=== PATIENT | male | born 1995 | race Caucasian/White ===

== ENCOUNTER 2019-04-30 11:42 | Emergency (ER) | payer SELFPAY ==
[~2019-04-30] VITALS: Ht 175.3 cm; Wt 97.7 kg
[2019-04-30 11:59] VITALS: BP 142/77
[2019-04-30] MEDS ORDERED: TETanus/Pertussis (Acell)/Diphther VAC/PF (Tdap-Adult) 0.5ml syringe IM ONE (12:45)
== END 2019-04-30 13:27 | disposition home or self-care (01) ==
LOC: ER 11:42
DX: S01.511A Laceration without foreign body of lip, initial encounter (principal); W26.8XXA Contact with other sharp object(s), not elsewhere classified, initial encounter; Y93.89 Activity, other specified; Y92.89 Other specified places as the place of occurrence of the external cause; Y99.8 Other external cause status
CPT/HCPCS: 12011; 90471; 99283

== ENCOUNTER 2019-05-05 13:33 | Emergency (ER) | payer OTHER ==
[~2019-05-05] VITALS: Ht 175.3 cm; Wt 102.0 kg
[2019-05-05 13:36] VITALS: BP 143/67
== END 2019-05-05 14:36 | disposition home or self-care (01) ==
LOC: ER 13:34
DX: S01.511D Laceration without foreign body of lip, subsequent encounter (principal); W26.8XXD Contact with other sharp object(s), not elsewhere classified, subsequent encounter
CPT/HCPCS: 99281

== ENCOUNTER 2025-04-01 09:33 | Day surgery (SDC) | payer OTHER ==
[2025-03-25 14:40] LABS: CREATININE 1.15 MG/DL (0.60-1.10); PRE OP ALT 53 U/L (30-65); PRE OP ANION GAP 3 (8-16); PRE OP AST 35 U/L (10-37); PRE OP BILIRUB, TOTAL 0.5 MG/DL (0.0-1.0); PRE OP GLUCOSE 111 MG/DL (70-104); PRE OP POTASSIUM 4.1 MMOL/L (3.4-5.1); PRE OP SODIUM 136 MMOL/L (135-145); TOTAL CARBON DIOXIDE 30.9 MMOL/L (24-32); eGFR 75 ML/MIN
[2025-03-25 14:45] LABS: MEAN PLATELET VOLUME 8.9 FL (7.4-10.4); PRE OP HEMATOCRIT 51.0 % (42.0-52.0); PRE OP HEMOGLOBIN 17.7 g/dL (14.0-17.9); PRE OP PLATELET COUNT 211 X10'3 (140-440); PRE OP WHITE BLOOD COUNT 7.2 10'3 (4.8-10.8); RED CELL DISTRIBUTION WIDTH 13.8 % (11.5-14.5)
[~2025-04-01] VITALS: Ht 175.3 cm; Wt 106.6 kg
[2025-04-01] VITALS (14 sets, daily range): BP systolic 100–134; BP diastolic 53–80; PULSE 61–83; RESP 13–22; TEMP 98.8; O2SAT 94–99
[2025-04-01] MEDS: ceFAZolin 2gm/dext,iso 50mL 50 ML IV ONE (05:30)
[~2025-04-01 09:33] MED LIST: NO HOME MEDS
[2025-04-01] MEDS ORDERED: LIDOcaine 1% 30ml preserv. free vial ONE (09:56)
[2025-04-01] MEDS ORDERED: BUPIVAcaine 2.5mg/ml inj 50ml vial (contains preservative) ONE (09:56)
[2025-04-01] MEDS ORDERED: BUPIVACAINE liposomal/PF 13.3 MG/ML 10mL vial IM ONE (09:56)
[2025-04-01] MEDS: ringers solution, lacted 1,000 ML IV SCH (10:07)
[2025-04-01] MEDS ORDERED: fentaNYL/PF 50MCG/1 ML 2ML syringe IV PRN ×2 (10:30)
[2025-04-01] MEDS ORDERED: ondansetron/PF 4mg/2ml inj IV PRN (10:30)
[2025-04-01] MEDS ORDERED: labetalol 20mg/4ml (5mg/ml) syringe IV PRN (10:30)
[2025-04-01] MEDS ORDERED: morphine 4 MG/ML inj SYRINge IV PRN (10:30)
[2025-04-01] MEDS ORDERED: hydrALAZINE 20mg/ml inj. IV PRN (10:30)
[2025-04-01] MEDS ORDERED: ringers solution, lacted 1,000 ML IV SCH (10:30)
[2025-04-01] MEDS ORDERED: fentaNYL/PF 50MCG/1 ML 2ML syringe ONE ×2 (10:45→11:09)
[2025-04-01] MEDS ORDERED: midazolam 1 mg/ML 2ml injection ONE (10:45)
[2025-04-01] MEDS ORDERED: LIDOcaine 1%/PF 5ML 10 MG/ML VIAL ONE (10:49)
[2025-04-01] MEDS ORDERED: propofol inj 20 ML IV ONE (10:49)
[2025-04-01] MEDS ORDERED: ondansetron/PF 4mg/2ml inj ONE (10:49)
[2025-04-01] MEDS ORDERED: glycopyrrolate 0.2mg/ml inj ONE (10:49)
[2025-04-01] MEDS ORDERED: dexamethasone sod phosphate 4mg/ml inj. ONE (10:49)
[2025-04-01] MEDS ORDERED: acetaminophen 1,000mg/100ml IV 100 ML IV ONE (10:53)
[2025-04-01] MEDS: BUPIVAcaine/PF 2.5 mg/ml (0.25%) 30ml vial IJ ONE (10:57)
[2025-04-01] MEDS ORDERED: metoprolol tartrate 1mg/ml inj IV ONE (11:07)
[2025-04-01] MEDS ORDERED: bacitracin 15gm ointment TP ONE (11:20)
--- NOTE | 2025-04-01 12:18 | OPERATIVE REPORT ---
Operative Report Providers to CC CC: MICHAEL BEGUM MD ~ Date of Procedure: Apr 01, 2025 Pre-Operative Diagnosis: Ventral hernia Post-Operative Diagnosis 2 cm ventral hernia Procedure Performed Robotic assisted, laparoscopic 2 cm ventral hernia repair with mesh Bilateral transversus abdominis plane nerve blocks by injection using 266 mg of Exparel Surgeon: Michael Begum MD FACS [employer] None Anesthesiologist: Romeo Leonard Type of Anesthesia: General Findings: 1-2 cm fascial defect just above the umbilicus and a 2nd, subcentimeter defect just above this Wound class I Complications None Prosthetics\Implants used: 12 cm diameter coated polyester mesh Estimated Blood Loss: Minimal Specimen Removed: None Description of Procedure: Patient was brought to the operating room and identified by the nursing staff and the attending physician. Patient was placed supine and a general anesthesia was induced. Preoperative antibiotics were given. The abdomen was prepped and draped in the standard sterile fashion. Through a left subcostal stab incision the abdomen was accessed with a Veress needle technique. Abdomen was insufflated without incident. The incision was lengthened to accommodate a 12 mm optical trocar and the abdomen was entered under laparoscopic visualization. The abdomen was surveyed laparoscopically. No gross abnormalities were noted. Under laparoscopic visualization, robotic trochars were placed in the left lateral and left lower quadrant. The [employer] robotic arm was docked to the patient and instruments guided intra-abdominally under laparoscopic visualization. Just lateral to the midline, a peritoneal rent was created at the level of the umbilicus and dissection in the preperitoneal plane was carried towards the midline. Just above the umbilicus, a 1-2 cm fascial defect was encountered. There was herniated preperitoneal fat that was reduced. The pe ritoneum was mobilized superiorly and a 2nd, subcentimeter defect was encountered. Further dissection, including the falciform ligament was mobilized superiorly to allow adequate space for mesh deployment along the posterior rectus sheath/linea alba. Fascial defect(s) were then reapproximated with running, nonabsorbable, 0V lock suture. Good fascial apposition was obtained without significant tension. A coated polyester mesh was then fixed to the anterior abdominal wall with running, absorbable, 2/0, V lock suture. Mesh laid without wrinkles or folds. The mesh measured 12 cm in diameter The [employer] instruments were then removed and the robot undocked from the patient. Bilateral transversus abdominis plane nerve blocks by injection were then placed under laparoscopic visualization using a combination of Marcaine and 266 mg of Exparel. The left subcostal trocar was removed and its fascia closed percutaneously with 0 Vicryl suture under laparoscopic visualization. Remaining trochars were removed after the abdomen was allowed to deflate. Skin was closed at all sites with 4-0 Monocryl sutures and dressed with sterile dressings. Patient was awakened and taken to the postanesthesia care unit in stable condition. Counts repoted as correct: Yes MICHAEL BEGUM MD Apr 01, 2025 12:18
[2025-04-01] MEDS: oxyCODONE/APAP 5-325mg tablet PO PRN (12:58)
== END 2025-04-01 13:59 | disposition home or self-care (01) ==
LOC: PAS 09:33
PROVIDERS: ATTEND Surgery
DX: K43.9 Ventral hernia without obstruction or gangrene (principal); E66.3 Overweight; Z79.899 Other long term (current) drug therapy; Z68.35 Body mass index [BMI] 35.0-35.9, adult
CPT/HCPCS: 36415; 49591; 64488; 80053; 82948; 85025; C1781; J0131; J0666; J1100; J2003; J2250; J2405; J2704; J2710; J3010; J3490; J7030; J7120; Z7506; Z7508; Z7512; A4215; A4618